=== PATIENT | male | born 1965 | race Caucasian/White ===

== ENCOUNTER 2025-01-02 01:18 | Outpatient (REF) | payer MEDICARE, SELFPAY ==
--- OUTSIDE RECORDS SUMMARY | 2024-12-09 13:45 | XMS_ITS ---
Author Organization [facility] Address [address] [place] [address] [place] [address] Care Team Providers Care Replenisher Name Role Phone Shon Domingo Unavailable [phone] Encounters Encounter Location Date Provider Diagnosis [facility] [address] [place], [place] [id number] 12/09/2024 Shon Domingo Plan Of Treatment No Information Progress Notes * Derrick WELLINGTON EDOB:1965 (59 yo M)Acc No.[id number]:12/09/2024 Progress Notes Patient: Byron MAY Derrick Kate :?YANIQUE PaceMDOB:1965???Age:59 Y???Sex: MaleDate:12/09/2024Phone:[phone]:606 Mary RaymundoB[facility] Subjective: * Chief Complaints: * * Medical History: Objective: * Vitals: Assessment: Plan: * Treatment: * Images: * Electronic signature of Shon Domingo DPM on 01/02/2025 at 01:31 AM EDTSign off status: Pending * Provider: Ross Domingo DPM Date: 0 12/09/2024 Generated for Printing/Faxing/eTransmitting on:?01/02/2025 01:31 AM EDT
--- OUTSIDE RECORDS SUMMARY | 2024-12-10 13:00 | XMS_ITS ---
Author Organization [facility] Address [address] [place] [address] [place] [address] Care Team Providers Care Script Writer Name Role Phone Shon Domingo Unavailable [phone] Encounters Encounter Location Date Provider Diagnosis [facility] [address] [place], [place] [id number] 12/10/2024 Shon Domingo Plan Of Treatment No Information Progress Notes * Derrick WELLINGTON EDOB:1965 (59 yo M)Acc No.[id number]:12/10/2024 Progress Notes Patient: Byron MAY Derrick Kate :?YANIQUE PaceMDOB:1965???Age:59 Y???Sex: MaleDate:12/10/2024Phone:[phone]:606 Mary [facility] Subjective: * Chief Complaints: * * Medical History: Objective: * Vitals: Assessment: Plan: * Treatment: * Images: * Electronic signature of Shon Domingo DPM on 01/02/2025 at 01:32 AM EDTSign off status: Pending * Provider: Ross Domingo DPM Date: 0 12/10/2024 Generated for Printing/Faxing/eTransmitting on:?01/02/2025 01:32 AM EDT
--- OUTSIDE RECORDS SUMMARY | 2024-12-11 14:45 | XMS_ITS ---
Author Organization [facility] Address [address] [place] [address] [place] [address] Care Team Providers Care Account Services Analyst Name Role Phone hSon Domingo Unavailable [phone] Encounters Encounter Location Date Provider Diagnosis [facility] [address] [place], [place] [id number] 12/11/2024 Shon Domingo Plan Of Treatment No Information Progress Notes * Derrick WELLINGTON EDOB:1965 (59 yo M)Acc No.[id number]:12/11/2024 Progress Notes Patient: Byron MAY Derrick Kate :?YANIQUE PaceMDOB:1965???Age:59 Y???Sex: MaleDate:12/11/2024Phone:[phone]:606 Mary [facility] Subjective: * Chief Complaints: * * Medical History: Objective: * Vitals: Assessment: Plan: * Treatment: * Images: * Electronic signature of Shon Domingo DPM on 01/02/2025 at 01:29 AM EDTSign off status: Pending * Provider: Ross Domingo DPM Date: 1 Generated for Printing/Faxing/eTransmitting on:?01/02/2025 01:29 AM EDT
--- OUTSIDE RECORDS SUMMARY | 2024-12-13 08:15 | XMS_ITS ---
Author Organization [facility] Address [address] [place] [address] [place] [address] Care Team Providers Care Window/Distribution Clerk Name Role Phone Shon Domingo Unavailable [phone] REASON FOR VISIT consult Encounters Encounter Location Date Provider Diagnosis [facility] [address] [place], [place] [id number] 12/13/2024 Shon Domingo Plan Of Treatment No Information Progress Notes * Derrick WELLINGTON EDOB:1965 (59 yo M)Acc No.[id number]:12/13/2024 Progress Notes Patient: Byron MAY Derrick Kate :?YANIQUE PaceMDOB:1965???Age:59 Y???Sex: MaleDate:12/13/2024Phone:[phone]:Radha6 Mary RaymundoRE[facility] Subjective: * Chief Complaints: * 1 . Consult. * Medical History: Objective: * Vitals: Assessment: Plan: * Treatment: * Images: * Electronic signature of Shon Domingo DPM on 01/02/2025 at 01:31 AM EDTSign off status: Pending * Provider: Ross Domingo DPM Date: 1 Generated for Printing/Faxing/eTransmitting on:?01/02/2025 01:31 AM EDT
--- OUTSIDE RECORDS SUMMARY | 2024-12-15 09:00 | XMS_ITS ---
Author Organization [facility] Address [address] [place] [address] [place] [address] Care Team Providers Care Hogshead Mat Assembler Name Role Phone Shon Domingo Unavailable [phone] REASON FOR VISIT consult Encounters Encounter Location Date Provider Diagnosis [facility] [address] [place], [place] [id number] 12/15/2024 Shon Domingo Plan Of Treatment No Information Progress Notes * Derrick WELLINGTON EDOB:1965 (59 yo M)Acc No.[id number]:12/15/2024 Progress Notes Patient: Byron MAY Derrick Kate :?YANIQUE PaceMDOB:1965???Age:59 Y???Sex: MaleDate:12/15/2024Phone:[phone]:Radha6 Mary [facility]mundoK[facility] Subjective: * Chief Complaints: * 1 . Consult. * Medical History: Objective: * Vitals: Assessment: Plan: * Treatment: * Images: * Electronic signature of Shon Domingo DPM on 01/02/2025 at 01:33 AM EDTSign off status: Pending * Provider: Ross Domingo DPM Date: 1 Generated for Printing/Faxing/eTransmitting on:?01/02/2025 01:33 AM EDT
--- OUTSIDE RECORDS SUMMARY | 2024-12-17 13:00 | XMS_ITS ---
Author Organization [facility] Address [address] [place] [address] [place] [address] Care Team Providers Care Meal Cook Name Role Phone Shon Domingo Unavailable [phone] REASON FOR VISIT consult Encounters Encounter Location Date Provider Diagnosis [facility] [address] [place], [place] [id number] 12/17/2024 Shon Domingo Plan Of Treatment No Information Progress Notes * Derrick WELLINGTON EDOB:1965 (59 yo M)Acc No.[id number]:12/17/2024 Progress Notes Patient: Byron MAY Derrick Kate :?YANIQUE PaceMDOB:1965???Age:59 Y???Sex: MaleDate:12/17/2024Phone:[phone]:Radha6 Mary RaymundoSA[facility] Subjective: * Chief Complaints: * 1 . Consult. * Medical History: Objective: * Vitals: Assessment: Plan: * Treatment: * Images: * Electronic signature of Shon Domingo DPM on 01/02/2025 at 01:29 AM EDTSign off status: Pending * Provider: Ross Domingo DPM Date: 1 Generated for Printing/Faxing/eTransmitting on:?01/02/2025 01:29 AM EDT
--- OUTSIDE RECORDS SUMMARY | 2024-12-19 08:30 | XMS_ITS ---
Author Organization [facility] Address [address] [place] [address] [place] [address] Care Team Providers Care Staff Forester Name Role Phone Shon Domingo Unavailable [phone] Encounters Encounter Location Date Provider Diagnosis [facility] [address] [place], [place] [id number] 12/19/2024 Shon Domingo Plan Of Treatment No Information Progress Notes * Derrick WELLINGTON EDOB:1965 (59 yo M)Acc No.[id number]:12/19/2024 Progress Notes Patient: Byron MAY Derrick Kate :?YANIQUE PaceMDOB:1965???Age:59 Y???Sex: MaleDate:12/19/2024Phone:[phone]:606 Mary RaymundoSSM [facility] Subjective: * Chief Complaints: * * Medical History: Objective: * Vitals: Assessment: Plan: * Treatment: * Images: * Electronic signature of Shon Domingo DPM on 01/02/2025 at 01:32 AM EDTSign off status: Pending * Provider: Ross Domingo DPM Date: 1 Generated for Printing/Faxing/eTransmitting on:?01/02/2025 01:32 AM EDT
--- OUTSIDE RECORDS SUMMARY | 2024-12-21 05:45 | XMS_ITS ---
Author Organization [facility] Address [address] [place] [address] [place] [address] Care Team Providers Care Tool Keeper Name Role Phone Shon Domingo Unavailable [phone] Encounters Encounter Location Date Provider Diagnosis [facility] [address] [place], [place] [id number] 12/21/2024 Shon Domingo Plan Of Treatment No Information Progress Notes * Derrick WELLINGTON EDOB:1965 (59 yo M)Acc No.[id number]:12/21/2024 Progress Notes Patient: Byron MAY Derrick Kate :?YANIQUE PaceMDOB:1965???Age:59 Y???Sex: MaleDate:12/21/2024Phone:[phone]:606 Mary RaymundoB[facility]WE[facility] Subjective: * Chief Complaints: * * Medical History: Objective: * Vitals: Assessment: Plan: * Treatment: * Images: * Electronic signature of Shon Domingo DPM on 01/02/2025 at 01:31 AM EDTSign off status: Pending * Provider: Ross Domingo DPM Date: Generated for Printing/Faxing/eTransmitting on:?01/02/2025 01:31 AM EDT
--- OUTSIDE RECORDS SUMMARY | 2024-12-24 13:00 | XMS_ITS ---
Author Organization [facility] Address [address] [place] [address] [place] [address] Care Team Providers Care Auto Body Repairer Name Role Phone Shon Domingo Unavailable [phone] Encounters Encounter Location Date Provider Diagnosis [facility] [address] [place], [place] [id number] 12/24/2024 Shon Domingo Plan Of Treatment No Information Progress Notes * Derrick WELLINGTON EDOB:1965 (59 yo M)Acc No.[id number]:12/24/2024 Progress Notes Patient: Byron MAY Derrick Kate :?YANIQUE PaceMDOB:1965???Age:59 Y???Sex: MaleDate:12/24/2024Phone:[phone]:606 Mary [facility]mundoH[facility]RICK [facility] Subjective: * Chief Complaints: * * Medical History: Objective: * Vitals: Assessment: Plan: * Treatment: * Images: * Electronic signature of Shon Domingo DPM on 01/02/2025 at 01:29 AM EDTSign off status: Pending * Provider: Ross Domingo DPM Date: 1 Generated for Printing/Faxing/eTransmitting on:?01/02/2025 01:29 AM EDT
--- OUTSIDE RECORDS SUMMARY | 2025-01-01 10:15 | XMS_ITS ---
Author Organization [facility] Address [address] [place] [address] [place] [address] Care Team Providers Care Php Magento Developer Name Role Phone Shon Domingo Unavailable [phone] Encounters Encounter Location Date Provider Diagnosis [place] [address] [facility] [place] [address] 01/01/2025 Shon Domingo Plan Of Treatment No Information Progress Notes * Derrick WELLINGTON EDOB:1965 (59 yo M)Acc No.[id number]:01/01/2025 Patient:?Derrick WELLINGTON :?YANIQUE PaceMDOB:1965???Age:59 Y???Sex: MaleDate:01/01/2025Phone:[phone]:606 Mary RaymundoSA[facility] Subjective: * Chief Complaints: * * Medical History: Objective: * Vitals: Assessment: Plan: * Treatment: * Images: * Electronic signature of Shon Domingo DPM on 01/02/2025 at 01:30 AM EDTSign off status: Pending * Provider: Ross Domingo DPM Date: 1 Generated for Printing/Faxing/eTransmitting on:?01/02/2025 01:30 AM EDT
[2025-01-02 01:30] LABS: Ammonia 25 umol/L (11-32)
--- OUTSIDE RECORDS SUMMARY | 2025-01-02 01:30 | XMS_ITS | Continuity of Care Document ---
Author Organization [facility] Address [address] [place] [address] Insurance Providers Payer Plan Claims Address Claims Phone Policy Number Group Number Relation Employer Guarantor Name Guarantor Guarantor Address Guarantor Phone [employer] [id number] [place] [address] Problems Condition ICD9 code ICD10 code SNOMED code Start Date End Date S tatus Other acute osteomyelitis, right ankle a nd foot M86.463405ActiveSepsis, unspecified rqnlshjfN65.915ActiveSepsis due to Methicillin susceptible Staphylococcus mocstdU46.0115Active Encounter for other orthopedic iybruzyvyH02.895ActiveSpinal stenosis, lumbar region without neurogenic bksfgqcnvlltL92.47423tiveType 2 diabetes mellitus with foot nrwguZ14.545775ActiveType 2 diabetes mellitus with diabetic kfiexqhyuayefiP62.4215ActiveArthritis due to other bacteria, right ankle and footM00.398575ActiveAnemia, pxsbzntxdwzW78.9 5ActiveMixed qbpnezxdokwkcgV10.2105ActiveMajor depressive disorder, recurrent, rjvkekthpblR98.915ActiveAnxiety disorder, nlvpcofzcbuK66.915ActivePrimary qukiilshE98.0115Active Atherosclerotic heart disease of [place] coronary artery without angina pectoris I25.10105ActiveUnspecified osteoarthritis, unspecified siteM19.90 105ActiveEssential (primary) yvegqwtexxskV34015ActiveAcquired absence of other right toe(s)Z89.376355ActiveGastro-esophageal reflux disease with esophagitis, without ovugzufbH00.0015ActiveTension-type headache, unspecified, mzhwyixvrpkG27.5ActiveOther chest painR07.89 12/29/2024tiveNutritional deficiency, wlogquxbfdtP61.91tiveMuscle weakness (generalized)M62.8112/30/2024tiveDifficulty in walking, not elsewhere jnuvkppppyK87.2105ActiveDysphagia, jguwcmgenkhV80.101tiveOther speech wigjfjvizhsrP78.8912/30/2024tive Results Test Result Date/Time Value / Unit Interp. Refere nce Range Blood chemistry[] Glucose [Mass/volume] in Serum or Plasma [2345-7] 01/01/2025 02:47 PM 98 mg/dL N Blood chemistry[[id number]]?Glucose [Mass/volume] in Serum or Plasma [2345-7]01/01/2025 08:07 AM124 mg/dLNTuberculosis reaction wheal[14585-9]?Tuberculosis reaction wheal [50252-2]12/30/2024 05:11 AM 0 mmNEGBlood chemistry[[id number]]?Glucose [Mass/volume] in Serum or Plasma [2345-7]01/01/2025 03:28 PM144 mg/dLNBlood chemistry[[id number]]? Glucose [Mass/volume] in Serum or Plasma [2345-7]01/01/2025 09:54 AM87 mg/dLN Blood chemistry[[id number]]?Glucose [Mass/volume] in Serum or Plasma [2345-7]12/31/2024 12:19 PM143 mg/dLNBlood chemistry[[id number]]?Glucose [Mass/volume] in Serum or Plasma [2345-7]12/31/2024 08:38 AM174 mg/dLNBlood chemistry[[id number]]?Glucose [Mass/volume] in Serum or Plasma [2345-7] 12/31/2024 03:35 PM179 mg/dLNBlood chemistry[[id number]]?Glucose [Mass/volume] in Serum or Plasma [2345-7]12/31/2024 09:00 AM180 mg/dLNBlood chemistry[[id number]]?Glucose [Mass/volume] in Serum or Plasma [2345-7] 12/30/2024 02:05 PM147 mg/dLNBlood chemistry[[id number]]?Glucose [Mass/volume] in Serum or Plasma [2345-7]12/30/2024 08:28 AM199 mg/dLNBlood chemistry[[id number]]?Glucose [Mass/volume] in Serum or Plasma [2345-7] 12/30/2024 03:29 PM274 mg/dLNBlood chemistry[[id number]]?Glucose [Mass/volume] in Serum or Plasma [2345-7]12/30/2024 09:35 AM226 mg/dLNBlood chemistry[[id number]]?Glucose [Mass/volume] in Serum or Plasma [2345-7] 12/30/2024 09:11 AM226 mg/dLNBlood chemistry[[id number]]?Glucose [Mass/volume] in Serum or Plasma [2345-7]12/30/2024 09:10 AM226 mg/dLN Tuberculosis reaction wheal[67369-5]?Tuberculosis reaction wheal [31367-0]12/30/2024 05:11 AMSee noteTB testBlood chemistry[[id number]]? Glucose [Mass/volume] in Serum or Plasma [2345-7]12/29/2024 02:49 PM399 mg/dLN Blood chemistry[[id number]]?Glucose [Mass/volume] in Serum or Plasma [2344-09]12/29/2024 02:47 PM399 mg/dLNGlucose [Mass/volume] in Serum or Plasma [2344-09]12/29/2024 02:47 PM399 mg/dLN Allergies, adverse reactions, alerts No known allergies and adverse reactions Medications Medication Instructions Route Dosage Frequency Start Date Stop Da te Indications Status amlodipine 10 mg tablet (amlodipine) 10 mg, oral, Once A Day oral 1.0 1.0 d 12/29/2024 Essential (primary) hypertensionActiveaspirin 81 mg tablet,chewable (aspirin)81 mg, oral, Once A Dayoral1.01.0 d1Essential (primary) hypertensionActive cefazolin 2 gram recon soln (cefazolin)2 grams, intravenous, Every 8 Hours intravenous1.08.0 Other acute osteomyelitis, right ankle and footActiveCelebrex (celecoxib) 100 mg capsule (Celebrex (celecoxib))100 mg, oral, Twice A Day - PRNoral1.012.0 12/29/2024rthritis due to other bacteria, right ankle and footActivedesvenlafaxine 100 mg tablet extended release 24 hr (desvenlafaxine)100 mg, oral, Once A Dayoral1.01.0 12/29/2024nxiety disorder, unspecifiedActiveduloxetine 30 mg capsule,delayed release(DR/EC) (duloxetine)30 mg, oral, Twice A Dayoral1.012.0 12/29/2024Major depressive disorder, recurrent, unspecifiedActivefamotidine 20 mg tablet (famotidine)20 mg, oral, Twice A Dayoral1.012.0 h1Gastro-esophageal reflux disease with esophagitis, without bleedingActivegabapentin 600 mg tablet (gabapentin)600 mg, oral, Three Times A Dayoral1.08.0 h1Type 2 diabetes mellitus with diabetic polyneuropathyActiveginseng 100 mg capsule (ginseng)500 mg, oral, Once A Dayoral1.01.0 d1Major depressive disorder, recurrent, unspecifiedActivehydroxyzine pamoate 50 mg capsule (hydroxyzine pamoate)50 mg, oral, Four Times A Day - PRNoral1.06.0 h1nxiety disorder, unspecifiedActiveinsulin aspart U-100 100 unit/mL (3 mL) insulin pen (insulin aspart U-100)5 units, subcutaneous, Before Meals and At Bedtimesubcutaneous1.0 Type 2 diabetes mellitus with diabetic polyneuropathyActive irbesartan 300 mg tablet (irbesartan)300 mg, oral, Once A Dayoral1.01.0 d Essential (primary) hypertensionActiveLantus Solostar U-100 Insulin (insulin glargine) 100 unit/mL (3 mL) insulin pen (Lantus Solostar U-100 Insulin (insulin glargine))35 units, subcutaneous, At Bedtimesubcutaneous1.01.0 d1Type 2 diabetes mellitus with diabetic polyneuropathyActivemelatonin 10 mg tablet (melatonin)10 mg, oral, At Bedtimeoral1.Primary insomniaActivemethocarbamol 750 mg tablet (methocarbamol)750 mg, oral, Three Times A Day - PRNoral1.08.0 h1Other acute osteomyelitis, right ankle and footActivequetiapine 300 mg tablet (quetiapine)300 mg, oral, At Bedtimeoral 1.Primary insomniaActiveatorvastatin 40 mg tablet (atorvastatin)40 mg, oral, At Bedtimeoral1.Mixed hyperlipidemiaActiveBucapsol (buspirone) 10 mg capsule (Bucapsol (buspirone))10 mg, oral, Twice A Dayoral1.0 12.0 h1nxiety disorder, unspecifiedActivecalcium carbonate- vitamin D3 500 mg-5 mcg (200 unit) tablet (calcium carbonate-vitamin D3)one tablet, oral, Once A Dayoral1.01.0 d1Encounter for other orthopedic uzvdcinpaAjomxooccsifnysn-yonlihdcntqhb-zaht 50-325-40 mg tablet (nhvenfryid-holgssfihcnix-akoy)one tablet, oral, Three Times A Day - PRNoral1.0 8.0 h1Tension-type headache, unspecified, intractableActiveclonazepam 1 mg tablet (clonazepam)1 mg, oral, Three Times A Dayoral1.08.0 h112/31/2024nxiety disorder, unspecifiedActivehydrocodone-acetaminophen 7.5-325 mg tablet (hydrocodone-acetaminophen)one tablet, oral, Every 6 Hours - PRNoral 1.06.0 h1Other acute osteomyelitis, right ankle and footActivemagnesium 200 mg tablet (magnesium)2 tablets = 400 mg, oral, Once A Dayoral1.01.0 d 12/29/2024Unspecified osteoarthritis, unspecified siteActivemetformin 500 mg tablet (metformin)500 mg, oral, Twice A Dayoral1.012.0 h1Type 2 diabetes mellitus with diabetic polyneuropathyActivemetoprolol succinate 25 mg tablet extended release 24 hr (metoprolol succinate)25 mg, oral, Once A Dayoral 1.01.0 d1Essential (primary) hypertensionActivenitroglycerin 0.4 mg tablet, sublingual (nitroglycerin)0.4 mg, sublingual, Every 5 Minutes - PRN sublingual1.05.0 minOther chest painActivenystatin 100,000 unit/gram powder (nystatin)one application, topical, Three Times A Day, skin concernstopical1.08.0 h1tivepioglitazone 30 mg tablet (pioglitazone) 30 mg, oral, Once A Dayoral1.01.0 d1Type 2 diabetes mellitus with diabetic polyneuropathyActivePlavix (clopidogrel) 75 mg tablet (Plavix (clopidogrel))75 mg, oral, Once A Dayoral1.01.0 d1Encounter for other orthopedic aftercareActivevitamin B complex - capsule (vitamin B complex)one capsule, oral, Once A Dayoral1..0 12/29/2024Encounter for other orthopedic aftercareActiveVitamin C (ascorbic acid (vitamin c)) 500 mg tablet (Vitamin C (ascorbic acid (vitamin c)))500 mg, oral, Once A Dayoral1..0 12/29/2024 Unspecified osteoarthritis, unspecified siteActivezinc sulfate 50 mg zinc (220 mg) tablet (zinc sulfate)50 mg, oral, Once A Dayoral1..0 12/29/2024 Unspecified osteoarthritis, unspecified siteActiveCalcium 600 + D(3) (calcium carbonate-vitamin d3) 600 mg-5 mcg (200 unit) tablet (Calcium 600 + D(3) (calcium carbonate-vitamin d3))1 tablet, oral, Once A Day, Supplementoral1.0 d15Activecefazolin 2 gram recon soln (cefazolin)2 grams, intravenous, Every 8 Hoursintravenous1.08.0 h1Other acute osteomyelitis, right ankle and footActiveheparin lock flush (porcine) 10 unit/mL solution (heparin lock flush (porcine))3mL, intravenous, Three Times A Day, MIDLINE VASCULAR ACCESS DEVICE-MEDICATION FLUSH HEPARINFlush with Normal Saline- 10mL before and after IV medication administration followed by Heparin 10 units/mL-6iRttstsbmpwme9.08.0 h15Activeinsulin lispro 100 unit/mL solution (insulin lispro)Per Sliding Scale, subcutaneous, Before Meals and At Bedtime, If Blood Sugar is less than 60, call MD.If Blood Sugar is 150 to 199, give 1 Units.If Blood Sugar is 200 to 249, give 2 Units.If Blood Sugar is 250 to 299, give 3 Units.If Blood Sugar is 300 to 349, give 4 Units.If Blood Sugar is 350 to 399, give 5 Units.If Blood Sugar is 400 to 450, give 6 Units.If Blood Sugar is greater than 450, call MD.subcutaneous1.Type 2 diabetes mellitus with diabetic polyneuropathyActivelosartan 100 mg tablet (losartan)1 tablet, oral, Once A Dayoral1..0 d1Essential (primary) hypertensionActiveNormal Saline Flush (sodium chloride 0.9 % (flush)) - syringe (Normal Saline Flush (sodium chloride0.9 % (flush)))10mL, injection, Three Times A Day, MIDLINE VASCULAR ACCESS DEVICE-NS MEDICATION FLUSHFlush with Normal Saline 10mL before and after each medication followed by Heparin 10 units/mL-3mL 1.08.0 h15Activehydroxyzine pamoate 50 mg capsule (hydroxyzine pamoate) 50 mg, oral, Four Times A Day - PRNoral1.06.0 h1511/nxiety disorder, unspecifiedActivenitroglycerin 0.4 mg tablet, sublingual (nitroglycerin)0.4 mg, sublingual, As Needed, give one tablet every 5 mins as needed for chest pain if unrelieved notify MDsublingual1.01.0 12/30/2024Other chest painActiveBucapsol (buspirone) 10 mg capsule (Bucapsol (buspirone))9.5mg, oral, Once A Dayoral1.01.0 d151nxiety disorder, unspecified Activeclonazepam 1 mg tablet (clonazepam)1 mg, oral, Twice A Dayoral1.012.0 h 12/31/2024nxiety disorder, unspecifiedActivebuspirone 10 mg tablet (buspirone)1 tablet, oral, Once A Dayoral1.01.0 d1nxiety disorder, unspecified Active Vital Signs Date Vital Result Comment 12/29/2024 07:30 PM Body Height (8302-2) 70 [in_us] 12/29/2024 06:05 PMTemperature (8310-5)98 [degF]Oxygen Saturation (25262-2)99 % Respiratory Rate (9279-1)18 /minHeart Rate (8867-4)51 /minBlood Pressure Systolic (8480-6)169 mm[Hg]Blood Pressure Diastolic (8462-4)67 mm[Hg]12/30/2024 01:22 AMTemperature (8310-5)97.1 [degF]Oxygen Saturation (67316-0)97 % Respiratory Rate (9279-1)20 /minHeart Rate (8867-4)105 /minBlood Pressure Systolic (8480-6)129 mm[Hg]Blood Pressure Diastolic (8462-4)80 mm[Hg]12/30/2024 12:25 PMTemperature (8310-5)98.4 [degF]Oxygen Saturation (96073-9)98 % Respiratory Rate (9279-1)16 /minHeart Rate (8867-4)85 /minBlood Pressure Systolic (8480-6)145 mm[Hg]Blood Pressure Diastolic (8462-4)69 mm[Hg]12/30/2024 11:47 AMTemperature (8310-5)98.4 [degF]Oxygen Saturation (61791-6)98 % Respiratory Rate (9279-1)16 /minHeart Rate (8867-4)85 /minBlood Pressure Systolic (8480-6)145 mm[Hg]Blood Pressure Diastolic (8462-4)69 mm[Hg]12/30/2024 12:17 PMTemperature (8310-5)98.4 [degF]Oxygen Saturation (93233-9)98 % Respiratory Rate (9279-1)16 /minHeart Rate (8867-4)85 /minBlood Pressure Systolic (8480-6)145 mm[Hg]Blood Pressure Diastolic (8462-4)69 mm[Hg]12/30/2024 02:57 PMBody Weight (96770-2)206.3 [lb_av]Body Mass Index (78799-2)29.6 kg/m2 12/30/2024 10:03 PMTemperature (8310-5)97.8 [degF]Oxygen Saturation (00863-9)97 %Respiratory Rate (9279-1)16 /minHeart Rate (8867-4)84 /minBlood Pressure Systolic (8480-6)123 mm[Hg]Blood Pressure Diastolic (8462-4)75 mm[Hg]12/31/2024 10:55 AMTemperature (8310-5)97.9 [degF]Oxygen Saturation (59383-8)97 % Respiratory Rate (9279-1)16 /minHeart Rate (8867-4)75 /minBlood Pressure Systolic (8480-6)118 mm[Hg]Blood Pressure Diastolic (8462-4)68 mm[Hg]12/31/2024 11:34 AMTemperature (8310-5)97.9 [degF]Oxygen Saturation (23804-7)97 % Respiratory Rate (9279-1)16 /minHeart Rate (8867-4)75 /minBlood Pressure Systolic (8480-6)118 mm[Hg]Blood Pressure Diastolic (8462-4)68 mm[Hg]01/01/2025 12:22 AMTemperature (8310-5)98.9 [degF]Oxygen Saturation (30509-5)98 % Respiratory Rate (9279-1)16 /minHeart Rate (8867-4)87 /minBlood Pressure Systolic (8480-6)162 mm[Hg]Blood Pressure Diastolic (8462-4)69 mm[Hg]01/01/2025 08:25 AMTemperature (8310-5)98.4 [degF]Oxygen Saturation (32226-5)98 % Respiratory Rate (9279-1)18 /minHeart Rate (8867-4)80 /minBlood Pressure Systolic (8480-6)116 mm[Hg]Blood Pressure Diastolic (8462-4)66 mm[Hg]01/01/2025 11:26 PMTemperature (8310-5)97.7 [degF]Oxygen Saturation (34409-4)97 % Respiratory Rate (9279-1)18 /minHeart Rate (8867-4)81 /minBlood Pressure Systolic (8480-6)104 mm[Hg]Blood Pressure Diastolic (8462-4)65 mm[Hg]01/01/2025 10:47 PMTemperature (8310-5)98 [degF]Oxygen Saturation (18582-1)97 %Respiratory Rate (9279-1)16 /minHeart Rate (8867-4)78 /minBlood Pressure Systolic (8480-6) 110 mm[Hg]Blood Pressure Diastolic (8462-4)68 mm[Hg] Social History No smoking Hx information available Encounters Type CPT Code Date Location Provider Indication s encounter report 12/29/2024 03:50 PMJosé Miguel Arreola MD01 Advance Directives Directive Description Verification Date Supporting Document(s) Other Directive
--- OUTSIDE RECORDS SUMMARY | 2025-01-02 01:30 | XMS_ITS | Continuity of Care Document ---
Author Organization [facility] Address [address] [place] [address] Care Team Providers Care Veterinary Medicine Scientist Name Role Phone José Miguel Arreola MD Attending Physician [phone] Medications Medication Frequency Instructions Diagnosis Start Date End Date Last Administered amlodipine 10 mg tablet Once A Day 10 mg, oral, Once A Day I10 : Essential (primary) hypertension 12/29/2024 12/31/2024 05:25 AMaspirin 81 mg tablet,chewableOnce A Day81 mg, oral, Once A DayI10 : Essential (primary) tmluzpokhgfc47/19/202510/ 07:22 AM atorvastatin 40 mg tabletAt Tuyyspe47 mg, oral, At UwyfbjdQ68.2 : Mixed uokgzsrqfpdabr00 10:04 PMBucapsol (buspirone) 10 mg capsule Twice A Day10 mg, oral, Twice A DayF41.9 : Anxiety disorder, unspecified / 10:04 PMBucapsol (buspirone) 10 mg capsuleOnce A Day9.5mg, oral, Once A DayF41.9 : Anxiety disorder, winetiwjxcg90/21/2025 yjztloqkys-ansicpfdyaasm-yvsc 50-325-40 mg tabletThree Times A Day - PRNone tablet, oral, Three Times A Day - PRNG44.201 : Tension-type headache, unspecified, nklfxdpnsna32/19/2025Calcium 600 + D(3) (calcium carbonate-vitamin d3) 600 mg-5 mcg (200 unit) tabletOnce A Day1 tablet, oral, Once A Day 07:22 AMcefazolin 2 gram recon solnEvery 8 Hours2 grams, intravenous, Every 8 TgchbG48.171 : Other acute osteomyelitis, right ankle and foot 11:36 AMCelebrex (celecoxib) 100 mg capsule Twice A Day - BZE206 mg, oral, Twice A Day - PRNM00.871 : Arthritis due to other bacteria, right ankle and foot12/29/2024lonazepam 1 mg tabletThree Times A Day1 mg, oral, Three Times A DayF41.9 : Anxiety disorder, gsosswbjlnq93/19/2025 01:25 PMclonazepam 1 mg tabletTwice A Day1 mg, oral, Twice A DayF41.9 : Anxiety disorder, nipxcpmclls46/21/2025desvenlafaxine 100 mg tablet extended release 24 hrOnce A Jmo570 mg, oral, Once A DayF41.9 : Anxiety disorder, aucwwiokwss92 05:25 AMduloxetine 30 mg capsule,delayed release(DR/EC)Twice A Day30 mg, oral, Twice A DayF33.9 : Major depressive disorder, recurrent, jikczuxirgj33 07:22 AM famotidine 20 mg tabletTwice A Day20 mg, oral, Twice A DayK21.00 : Gastro- esophageal reflux disease with esophagitis, without lehfwxaq17 05:25 AMgabapentin 600 mg tabletThree Times A Rzk912 mg, oral, Three Times A Day E11.42 : Type 2 diabetes mellitus with diabetic ampnoigfpmzhtb18/19/2025 12/31/2024 01:25 PMheparin lock flush (porcine) 10 unit/mL solutionThree Times A Day3mL, intravenous, Three Times A Day, MIDLINE VASCULAR ACCESS DEVICE- MEDICATION FLUSH HEPARIN Flush with Normal Saline-10mL before and after IV medication administration followed by Heparin 10 units/mL-3mL 11:53 AMhydrocodone-acetaminophen 7.5-325 mg tabletEvery 6 Hours - PRNone tablet, oral, Every 6 Hours - PRNM86.171 : Other acute osteomyelitis, right ankle and foot 01:01 AMhydroxyzine pamoate 50 mg capsuleFour Times A Day - PRN50 mg, oral, Four Times A Day - PRN F41.9 : Anxiety disorder, tqkhomxtnbf05insulin lispro 100 unit/mL solutionBefore Meals and At Bgtgtez60 units, subcutaneous, Before Meals and At RtvmxykF20.42 : Type 2 diabetes mellitus with diabetic polyneuropathy 11:36 AMinsulin lispro 100 unit/mL solutionBefore Meals and At BedtimePer Sliding Scale, subcutaneous, Before Meals and At [...] Blood Sugar is greater than 450, call MD.E11.42 : Type 2 diabetes mellitus with diabetic wbsmaprbfhaiqe13 11:36 AMLantus Solostar U-100 Insulin (insulin glargine) 100 unit/mL (3 mL) insulin penAt Gcshwuz47 units, subcutaneous, At PmqjpnpB01.42 : Type 2 diabetes mellitus with diabetic zgmtvifzgdntcj53 10:06 PMLantus Solostar U-100 Insulin (insulin glargine) 100 unit/mL (3 mL) insulin penOnce A Day40 units, subcutaneous, Once A DayE11.621 : Type 2 diabetes mellitus with foot ulcer 05:26 AMlosartan 100 mg tabletOnce A Day1 tablet, oral, Once A DayI10 : Essential (primary) npdfvjeehysv89/20/202510/ 07:22 AM magnesium 200 mg tabletOnce A Day2 tablets = 400 mg, oral, Once A DayM19.90 : Unspecified osteoarthritis, unspecified site 05:25 AM melatonin 10 mg tabletAt Exkgxhr85 mg, oral, At XxdlfiaC70.01 : Primary insomnia 10:04 PMmetformin 500 mg tabletTwice A Xcw707 mg, oral, Twice A DayE11.42 : Type 2 diabetes mellitus with diabetic polyneuropathy 07:22 AMmethocarbamol 750 mg tabletThree Times A Day - PRN 750 mg, oral, Three Times A Day - PRNM86.171 : Other acute osteomyelitis, right ankle and foot12/29/2024metoprolol succinate 25 mg tablet extended release 24 hr Once A Day25 mg, oral, Once A DayI10 : Essential (primary) hypertension 05:25 AMnitroglycerin 0.4 mg tablet, sublingualAs Needed0.4 mg, sublingual, As Needed, give one tablet every 5 mins as needed for chest pain if unrelieved notify MDR07.89 : Other chest pain12/30/2024Normal Saline Flush (sodium chloride 0.9 % (flush)) - syringeThree Times A Tkh12hD, injection, Three Times A Day, MIDLINE VASCULAR ACCESS DEVICE-NS MEDICATION FLUSH Flush with Normal Saline 10mL before and after each medication followed by Heparin 10 units/mL-3mL 11:36 AMnystatin 100,000 unit/gram powderThree Times A Day one application, topical, Three Times A Day, skin concerns 07:22 AMpioglitazone 30 mg tabletOnce A Day30 mg, oral, Once A DayE11.42 : Type 2 diabetes mellitus with diabetic polyneuropathy 07:22 AMPlavix (clopidogrel) 75 mg tabletOnce A Day75 mg, oral, Once A DayZ47.89 : Encounter for other orthopedic aftercare / 05:25 AMquetiapine 300 mg tabletAt Mpbjpct637 mg, oral, At EqpjmyfJ69.01 : Primary bloewnaj09 10:04 PMvitamin B complex - capsuleOnce A Dayone capsule, oral, Once A DayZ47.89 : Encounter for other orthopedic 07:22 AMVitamin C (ascorbic acid (vitamin c)) 500 mg tabletOnce A Ewo668 mg, oral, Once A DayM19.90 : Unspecified osteoarthritis, unspecified site 07:22 AMzinc sulfate 50 mg zinc (220 mg) tabletOnce A Day50 mg, oral, Once A DayM19.90 : Unspecified osteoarthritis, unspecified site 05:25 AMCalcium 600 + D(3) (calcium carbonate-vitamin d3) 600 mg-5 mcg (200 unit) tabletOnce A Day1 tablet, oral, Once A Day, Supplement alcium carbonate-vitamin D3 500 mg-5 mcg (200 unit) tablet Once A Dayone tablet, oral, Once A DayZ47.89 : Encounter for other orthopedic 07:18 AMcefazolin 2 gram recon solnEvery 8 Hours2 grams, intravenous, Every 8 VxwunF64.171 : Other acute osteomyelitis, right ankle and foot 05:04 AMginseng 100 mg capsuleOnce A Wte028 mg, oral, Once A DayF33.9 : Major depressive disorder, recurrent, lhazyzqacmo84hydroxyzine pamoate 50 mg capsuleFour Times A Day - PRN50 mg, oral, Four Times A Day - PRNF41.9 : Anxiety disorder, uorllkkywog78insulin aspart U-100 100 unit/mL (3 mL) insulin penBefore Meals and At BedtimePer Sliding Scale, subcutaneous, Before Meals and At [...] Blood Sugar is greater than 450, call MD.E11.42 : Type 2 diabetes mellitus with diabetic aflarexvinnifx19 05:36 AMinsulin aspart U- 100 100 unit/mL (3 mL) insulin penBefore Meals and At Bedtime5 units, subcutaneous, Before Meals and At HkmllvoA86.42 : Type 2 diabetes mellitus with diabetic jjpgnisepjcqso78 05:36 AMinsulin lispro 100 unit/mL solutionBefore Meals and At Bedtime5 units, subcutaneous, Before Meals and At NiuqddaS75.42 : Type 2 diabetes mellitus with diabetic polyneuropathy irbesartan 300 mg tabletOnce A Tla326 mg, oral, Once A Day I10 : Essential (primary) ratavbostvyo14nitroglycerin 0.4 mg tablet, sublingualEvery 5 Minutes - PRN0.4 mg, sublingual, Every 5 Minutes - PRN R07.89 : Other chest pain Problems Code Type Problem ICD Code Effective Date Status ICD-10 Other acute osteomye litis, right ankle and foot M86.171 12/12/2024 Active ICD-10 Sepsis, unspecified organism A41.9 025 Active ICD-10 Sepsis due to Methic illin susceptible Staphylococcus aureus A41.01 12/25/2024 Active ICD-10 Encounter for other orthopedic aftercare Z47.89 12/25/2024 Active ICD-10 Spinal stenosis, lum bar region without neurogenic claudication M48.061 12/25/2024 Active ICD-10 Type 2 diabetes mellitus with foot ulcer E11.62 1 12/12/2024 Active ICD-10 Type 2 diabetes britni itus with diabetic polyneuropathy E11.42 12/12/2024 Active ICD-10 Arthritis due to oth er bacteria, right ankle and foot M00.871 12/12/2024 Active ICD-10 Anemia, unspecified D64.9 12/12/2024 Activ e ICD-10 Mixed hyperlipidemia E78.2 12/12/2024 Acti ve ICD-10 Major depressive dis order, recurrent, unspecified F33.9 12/12/2024 Active ICD-10 Anxiety disorder, unspecified F41.9 2024 Active ICD-10 Primary insomnia F51.01 12/12/2024 Active ICD-10 Atherosclerotic hear t disease of [place] coronary artery without angina pectoris I25.10 12/12/2024 Active ICD-10 Unspecified osteoarthritis, unspecified site M1 9.90 12/12/2024 Active ICD-10 Essential (primary) hypertension I10 04/2024 Active ICD-10 Acquired absence of other right toe(s) Z89.421 12/25/2024 Active ICD-10 Nutritional deficiency, unspecified E63.9 12/30/2024 Active ICD-10 Tension-type headach e, unspecified, intractable G44.201 12/29/2024 Active ICD-10 Gastro-esophageal re flux disease with esophagitis, without bleeding K21.00 12/29/2024 Active ICD-10 Muscle weakness (generalized) M62.81 2024 Active ICD-10 Other chest pain R07.89 12/29/2024 Active ICD-10 Difficulty in walkin g, not elsewhere classified R26.2 12/30/2024 Active ICD-10 Dysphagia, unspecified R13.10 12/30/2024 Ac tive ICD-10 Other speech disturbances R47.89 12/30/2024 Active Current Allergies and Intolerances Category Substance Type Reaction Severity Begin Date Status Drug Allergy No known drug allergies Allergy 5Active Vital Signs Height: 70.0 in Date / Time Temperature Pulse (per minute) Respirations (per minute) Systolic BP (mmHg) Diastolic BP (mmHg) O2 Saturation (%) Weight BMI 12/31/2024 11:34 AM 97.9 F 75 16 118 68 97.0 12/31/2024 10:55 AM97.9 [id number] 12/30/2024 10:03 PM97.8 [id number] 12/30/2024 02:57 PM 206.3 lbs29.610 12:25 PM98.4 [id number] 12/30/2024 12:17 PM98.4 [id number] 12/30/2024 11:47 AM98.4 [id number] 12/30/2024 01:22 AM97.1 [id number] 12/29/2024 06:05 PM98.0 [id number] Advance Directives Directive Note Full Code Insurance Providers Payer Policy type Group Name Group number Policy ID Address Ph one Medicare A Medicare Part A [id number]: Fax:[employer]/[place] Katja LevelsCommercial Insurance [id number]: Fax:Aetna National Part BLike Medicare Part B [id number]: Fax:Vaccinations - AetnaLike Medicare Part B [id number] [place] [address] Phone: Fax:Managed Coins PrivatePrivate Phone: Fax:Private PayPrivate Phone: Fax: Immunizations No Immunizations are on file for this resident Procedures Not available for this record Results Name Date Time Positive/Negative Value Unit Range Blood Sugar 12/31/2024 11:35 AM 179.0mg/dLBlood Sugar:00 AM180.0mg/dLBlood Sugar0:05 PM 147.0mg/dLBlood Sugar4:28 PM199.0mg/dLBlood Sugar:29 AM 274.0mg/dLBlood Sugar:35 AM226.0mg/dLBlood Sugar:11 AM 226.0mg/dLBlood Sugar:10 AM226.0mg/dLBlood Sugar0:49 PM 399.0mg/dLBlood Sugar10/19/249768:47 PM399.0mg/dLBlood Sugar0:47 PM 399.0mg/dLTB test1:11Unknownmm Goals Goal Date Resident's surgical wound wi ll heal without complications (infection, hemorrhage, dehiscence, evisceration, etc.). 01/28/2025 Resident's surgical wound wi ll heal without complications (infection, hemorrhage, dehiscence, evisceration, etc.). 01/31/2025 Resident's infection will resolve after completion of IV antibiotics 02/03/2025 The resident will have not h ave any complications related to IV Therapy through the review date 02/03/2025 Resident's isolation will re duce the spread of the infectious agent and minimize the transmission of the infection. 02/04/2025 Resident will not exhibit si gns of drug related: sedation, hypotension, or anticholinergic symptoms. 03/25/2025 Resident will not exhibit complications. 03/25/2025 Res[facility] needs will be met w [facility] assistance as needed. Res will improve in dressing and transfers. 03/26/2025 Resident will have BM at least every 3 d ays until next review 03/26/2025 The resident will be free fr om s/s of complications of cardiac problems through the review date. 03/26/2025 Resident will be free from a dverse reactions from use of blood-thinning medication through review date 03/26/2025 Resident will not experience negative consequences of vision loss as evidenced by: remaining physically safe, and participating in social and self-care activities. 03/26/2025 The resident will have no co mplications related to diabetes through the review date 03/26/2025 The resident will be free from complicat ions of med. 03/26/2025 Resident will have proper nu trition and hydration/ will be free of pain or bleeding in the oral cavity through next review 03/26/2025 Resident will state feeling rested. 03/13 Resident will not exhibit si gns of drug related: hypotension; sedation; anticholinergic symptoms; extrapyramidal symptoms. 03/26/2025 Resident will not have an in terruption in normal activities d/t pain through the next review 03/26/2025 Resident's code status decision will be honored daily through next review 04/01/2025 Resident will maintain sandro nent episodes of bowel and bladder daily thru next review 04/01/2025 Resident will remain free from injury. 0 04/01/2025 Resident's skin will remain intact. 03/14 Encounters Admission Date Discharge Date Description MRN Visit Count 12/29/2024 15:50 LTPAC [id number]
--- OUTSIDE RECORDS SUMMARY | 2025-01-02 01:33 | XMS_ITS | Patient Health Record ---
Author Organization [facility] Address [address] [place] [address] Care Team Providers Care Numerical Control Lathe Operator Name Role Phone Shon Domingo Unavailable [phone] Reason For Referral No Information Encounters Encounter Location Date Provider Diagnosis [facility] [address] [place], [place] [id number] 12/06/2024 Shon Domingo [facility] [address] [place] [address] [id number]/27/20[facility] [address]of[address] [place] [address] [id number] N[address] [place] [id number] [facility] [address] [place] [address] [id number] Xdh[address] [place] [address] [id number] Domingo [facility] [address] [place] [address] [id number] [facility] Off[address] [place] [address] [id number] Cgt[address] [place] [address] [id number] [facility]Mart[facility] Hzt[address]253 [place] [address] [id number] Axg[address] [place] [address] [id number] Domingo [address] [address] [place] [address]Shon Domingo Plan Of Treatment No Information Insurance Providers Payer Name Payer Address Payer Phone Subscriber Number Group Number Insured Name Patient Relationship to Insured Coverage Start Date Coverage End Date A[employer] [address] [place] [address] [id number] Derrick Milton Self - patient is the insured
== END 2025-01-02 01:19 | disposition home or self-care (01) ==
LOC: LAB 01:18
PROVIDERS: PCP Family Medicine; Visit Provider Family Medicine
DX: A41.9 Sepsis, unspecified organism (principal); E11.9 Type 2 diabetes mellitus without complications; R53.1 Weakness
CPT/HCPCS: 36415; 82140